=== PATIENT | female | born 1945 | race Caucasian/White ===

== ENCOUNTER 2020-07-08 11:15 | Inpatient (IN) | payer MEDICARE, SELFPAY ==
[~2020-07-08] VITALS: Ht 167.6 cm; Wt 68.9 kg
[2020-07-08 12:05] LABS: Basophils # (auto) 0 10 ^3/uL (0-0.2); Basophils % (auto) 0.1 % (0.0-2.0); Eosinophils # (auto) 0 10 ^3/uL (0-0.8); Hematocrit 39.1 % (36.0-46.0); Hemoglobin 13.3 g/dL (12.2-16.2); Lymphocytes # (auto) 0.7 10 ^3/uL (0.4-5.4); Lymphocytes % (auto) 7.1 % (10.0-50.0); Mean Corpuscular Hemoglobin 29.1 pg (28.0-32.0); Mean Corpuscular Hgb Conc. 34.1 g/dL (32.0-36.0); Mean Corpuscular Volume 85.3 fL (80.0-100.0); Monocytes # (auto) 0.9 10 ^3/uL (0-1.3); Monocytes % (auto) 8.8 % (0.0-12.0); Neutrophils # (auto) 8.7 10 ^3/uL (1.6-8.6); Red Blood Cells 4.58 10^6/uL (4.0-5.20); White Blood Cell 10.4 10^3/uL (4.4-10.8)
[2020-07-08 12:18] LABS: Calcium 8.1 mg/dL (8.5-10.1); Chloride 106 mmol/L (98-107); Potassium 4.2 mmol/L (3.5-5.1); Sodium 139 mmol/L (136-145)
[2020-07-08 12:19] LABS: Lactic Acid w/Reflex 2.3 mmol/L (0.4-2.0)
[2020-07-08 12:27] LABS: Alanine Aminotransferase 19 U/L (13-56); Albumin 2.5 g/dL (3.4-5.0); Alkaline Phosphatase 79 U/L (45-117); Anion Gap 6 (5-15); Aspartate Aminotransferase 39 U/L (15-37); BUN/Creatinine Ratio 21.3; Bilirubin, Total 0.5 mg/dL (0.2-1.0); Blood Urea Nitrogen 20 mg/dL (7-18); Carbon Dioxide 27 mmol/L (21-32); GFR African American 74 mL/min; GFR Non-African American 62 mL/min; Glucose 119 mg/dL (74-106); Lactate Dehydrogenase 452 U/L (84-246); Magnesium 2.6 mg/dL (1.6-2.6); Total Protein 7.9 g/dL (6.4-8.2)
[2020-07-08 12:32] LABS: INR 1.02 (0.9-1.15)
[2020-07-08 12:48] LABS: CRP High Sensitivity > 19.0 mg/dL (< 0.3)
[2020-07-08] MEDS ORDERED: ENOXAPARIN SOD 80 MG/0.8ML SYRINGE SC ONE (13:15)
[2020-07-08] MEDS ORDERED: ASPirin 325 MG TAB PO ONE (13:15)
[2020-07-08] MEDS ORDERED: REMDESIVIR PER PHARMACY 0 ML IV SCH (14:15)
[2020-07-08] MEDS ORDERED: NITROGLYCERIN 0.4 MG SL TAB SL PRN (14:15)
[2020-07-08] MEDS ORDERED: DexAMETHasone SOD PHOS 10MG/1ML VIAL INJ IV SCH (14:54)
[2020-07-08] MEDS ORDERED: IVERMECTIN 3 MG TAB PO ONE (14:55)
[2020-07-08] MEDS ORDERED: REMDESIVIR 200 MG in NS 210ml LOADING DOSE ADULT IV ONE (15:00)
[2020-07-08] MEDS: ASCORBIC ACID 1,000 MG TAB PO SCH (15:46)
[2020-07-08] MEDS: ZINC SULFATE 220mg CAP or TAB PO SCH (15:47)
[2020-07-08] MEDS: CHOLECALCIFEROL (VITD3) 2,000 UNIT CAP/TAB PO SCH (15:47)
[2020-07-08 17:27] VITALS: BP 139/87
[2020-07-08] MEDS ORDERED: diphenhdrAMINE HCL 50 MG/1 ML VL IV ONE (17:30)
[2020-07-08] MEDS ORDERED: ACETAMINOPHEN 650 mg PER 20.3 mL UD PO ONE (17:30)
[2020-07-08] MEDS ORDERED: TOCILIZUMAB 400 MG in SODIUM CHL 0.9% 80 ML IV ONE (18:00)
[2020-07-08] MEDS: ENOXAPARIN SOD 40 MG/0.4 ML SYRINGE SC SCH (21:23)
[2020-07-08] MEDS: BUDESONIDE (INHALATION) 180 MCG IH IN SCH (23:50)
[2020-07-09 00:26] VITALS: BP 98/58
[2020-07-09 01:10] VITALS: BP 98/56
[2020-07-09 01:25] VITALS: BP 103/63
[2020-07-09 02:30] VITALS: BP 92/56
[2020-07-09] MEDS: BUDESONIDE (INHALATION) 180 MCG IH IN SCH ×2 (06:50→21:46)
[2020-07-09 08:00] VITALS: BP 109/58
[2020-07-09] MEDS ORDERED: ACETAMINOPHEN 650 mg PER 20.3 mL UD PO ONE (08:00)
[2020-07-09] MEDS ORDERED: diphenhdrAMINE HCL 50 MG/1 ML VL IV ONE (08:00)
[2020-07-09] MEDS ORDERED: DexAMETHasone SOD PHOS 10MG/1ML VIAL INJ IV ONE (08:00)
[2020-07-09] MEDS ORDERED: TOCILIZUMAB 400 MG in SODIUM CHL 0.9% 80 ML IV ONE (08:30)
[2020-07-09] MEDS: ALBUTEROL SULF HFA 90MCG INH 200DOSE IN PRN (09:15)
[2020-07-09] MEDS: CHOLECALCIFEROL (VITD3) 2,000 UNIT CAP/TAB PO SCH (09:57)
[2020-07-09] MEDS: ZINC SULFATE 220mg CAP or TAB PO SCH (09:57)
[2020-07-09] MEDS: ASCORBIC ACID 1,000 MG TAB PO SCH (09:57)
[2020-07-09] MEDS: ENOXAPARIN SOD 40 MG/0.4 ML SYRINGE SC SCH ×2 (09:58→21:52)
[2020-07-09] MEDS ORDERED: traMADol HCL 50 MG TAB PO PRN (12:15)
[2020-07-09] MEDS ORDERED: ONDANSETRON HCL 4 MG/2 ML VIAL IV PRN (12:15)
[2020-07-09] MEDS: REMDESIVIR 100mg 100 MG in SODIUM CHL 0.9% 230 ML IV SCH (15:00)
[2020-07-09 16:00] VITALS: BP 135/75
[2020-07-09] MEDS ORDERED: ASPirin 81 mg TAB PO ONE (16:00)
[2020-07-09] MEDS ORDERED: ATORVASTATIN 20 MG TAB PO SCH (22:00)
[2020-07-10] VITALS (23 sets, daily range): BP systolic 75–200; BP diastolic 41–124
[2020-07-10] MEDS: MORPHINE SULFATE INJECTION 2 MG/ML SYRG IV PRN (03:50)
[2020-07-10] MEDS ORDERED: LORazepam 2MG/ML-1ML VIAL IV ONE (04:30)
[2020-07-10] MEDS: ALBUTEROL SULF HFA 90MCG INH 200DOSE IN PRN (06:17)
[2020-07-10] MEDS: BUDESONIDE (INHALATION) 180 MCG IH IN SCH ×2 (06:17→22:00)
[2020-07-10 06:19] LABS: Albumin 2.3 g/dL (3.4-5.0); BUN/Creatinine Ratio 40.9; Bilirubin, Total 0.3 mg/dL (0.2-1.0); Calcium 8.2 mg/dL (8.5-10.1); Total Protein 7.2 g/dL (6.4-8.2)
[2020-07-10] MEDS: NOREPINEPHRINE 8 MG/250ML KIT 250 ML IV SCH (08:00)
[2020-07-10] MEDS ORDERED: HALOPERIDOL LACTATE 5 MG/ML INJ VIAL IM PRN (09:30)
[2020-07-10] MEDS: DexAMETHasone SOD PHOS 10MG/1ML VIAL INJ IV SCH (09:37)
[2020-07-10] MEDS: ENOXAPARIN SOD 40 MG/0.4 ML SYRINGE SC SCH ×2 (09:38→22:00)
[2020-07-10] MEDS: ASPirin 81 mg TAB PO SCH (09:39)
[2020-07-10] MEDS: ASCORBIC ACID 1,000 MG TAB PO SCH (09:39)
[2020-07-10] MEDS: CHOLECALCIFEROL (VITD3) 2,000 UNIT CAP/TAB PO SCH (09:39)
[2020-07-10] MEDS: ZINC SULFATE 220mg CAP or TAB PO SCH (09:39)
[2020-07-10] MEDS ORDERED: LORazepam 2MG/ML-1ML VIAL IV PRN (12:00)
[2020-07-10] MEDS: DOXYCYCLINE 100MG/250ML 250 ML IV SCH (12:30)
[2020-07-10] MEDS ORDERED: ETOMIDATE (2MG/ML) 20ML VIAL IV ONE ×2 (12:45→13:12)
[2020-07-10] MEDS ORDERED: ROCURONIUM 10MG/ML 10ML VIAL IV ONE ×2 (12:45→13:12)
[2020-07-10] MEDS: fentaNYL Drip 2500mCg/250mlNS 250 ML IV SCH (13:30)
[2020-07-10] MEDS: MIDAZOLAM DRIP 50 mg/50mL 50 ML IV SCH (13:30)
[2020-07-10] MEDS: PROPOFOL 100 ML IV SCH (13:30)
[2020-07-10] MEDS: REMDESIVIR 100mg 100 MG in SODIUM CHL 0.9% 230 ML IV SCH (15:00)
[2020-07-11] VITALS (31 sets, daily range): BP systolic 90–142; BP diastolic 39–69
[2020-07-11] MEDS: DOXYCYCLINE 100MG/250ML 250 ML IV SCH ×2 (00:30→11:38)
[2020-07-11 05:12] LABS: Basophils # (auto) 0 10 ^3/uL (0-0.2); Basophils % (auto) 0.2 % (0.0-2.0); Eosinophils # (auto) 0 10 ^3/uL (0-0.8); Eosinophils % (auto) 0.1 % (0.0-7.0); Hematocrit 35.9 % (36.0-46.0); Hemoglobin 11.8 g/dL (12.2-16.2); Lymphocytes # (auto) 0.7 10 ^3/uL (0.4-5.4); Lymphocytes % (auto) 9.8 % (10.0-50.0); Mean Corpuscular Hemoglobin 28.4 pg (28.0-32.0); Monocytes # (auto) 0.7 10 ^3/uL (0-1.3); Monocytes % (auto) 10.6 % (0.0-12.0); Neutrophils # (auto) 5.3 10 ^3/uL (1.6-8.6); Neutrophils % (auto) 79.3 % (37.0-80.0); Nucleated Red Blood Cells % 0.5 %; Red Blood Cells 4.17 10^6/uL (4.0-5.20); Red Cell Distribution Width 15.6 % (11.8-14.3); White Blood Cell 6.7 10^3/uL (4.4-10.8)
[2020-07-11 05:15] LABS: Calcium 7.8 mg/dL (8.5-10.1); Potassium 4.4 mmol/L (3.5-5.1)
[2020-07-11 05:23] LABS: Albumin 2.3 g/dL (3.4-5.0); BUN/Creatinine Ratio 39.8; Bilirubin, Total 0.4 mg/dL (0.2-1.0); Total Protein 6.5 g/dL (6.4-8.2)
[2020-07-11] MEDS: DexAMETHasone SOD PHOS 10MG/1ML VIAL INJ IV SCH (08:58)
[2020-07-11] MEDS: ZINC SULFATE 220mg CAP or TAB PO SCH (08:59)
[2020-07-11] MEDS: ASCORBIC ACID 1,000 MG TAB PO SCH (08:59)
[2020-07-11] MEDS: CHOLECALCIFEROL (VITD3) 2,000 UNIT CAP/TAB PO SCH (08:59)
[2020-07-11] MEDS: ASPirin 81 mg TAB PO SCH ×2 (08:59)
[2020-07-11] MEDS: ENOXAPARIN SOD 40 MG/0.4 ML SYRINGE SC SCH ×2 (10:00→21:35)
[2020-07-11] MEDS: MIDAZOLAM DRIP 50 mg/50mL 50 ML IV SCH (12:00)
[2020-07-11] MEDS: fentaNYL Drip 2500mCg/250mlNS 250 ML IV SCH (12:15)
[2020-07-11] MEDS ORDERED: Jevity 1.2 Cal/Fiber 1 Liter GT SCH (14:30)
[2020-07-11] MEDS ORDERED: D5W 5% 1,000 ML IV SCH (14:30)
[2020-07-11] MEDS: REMDESIVIR 100mg 100 MG in SODIUM CHL 0.9% 230 ML IV SCH (15:25)
[2020-07-11 15:59] LABS: Urine Bacteria NONE SEEN /hpf (None Seen); Urine Blood Negative /uL (Negative); Urine Hyaline Cast FEW /lpf (0 - 2); Urine Mucus FEW (None Seen); Urine Specific Gravity 1.023 (1.001-1.035); Urine WBC 9 /hpf (0 - 5)
[2020-07-12] VITALS (31 sets, daily range): BP systolic 69–143; BP diastolic 49–77
[2020-07-12] MEDS: DOXYCYCLINE 100MG/250ML 250 ML IV SCH ×2 (00:30→12:07)
[2020-07-12 07:21] LABS: Hematocrit 34.1 % (36.0-46.0); Hemoglobin 11.4 g/dL (12.2-16.2); Mean Corpuscular Hemoglobin 28.9 pg (28.0-32.0); Mean Corpuscular Hgb Conc. 33.5 g/dL (32.0-36.0); Mean Corpuscular Volume 86.1 fL (80.0-100.0); Red Blood Cells 3.96 10^6/uL (4.0-5.20); Red Cell Distribution Width 15.6 % (11.8-14.3); White Blood Cell 6.5 10^3/uL (4.4-10.8)
[2020-07-12 07:39] LABS: Albumin 2.2 g/dL (3.4-5.0); Calcium 7.3 mg/dL (8.5-10.1); Potassium 3.4 mmol/L (3.5-5.1)
[2020-07-12 07:43] LABS: BUN/Creatinine Ratio 29.8; Bilirubin, Total 0.4 mg/dL (0.2-1.0)
[2020-07-12 07:57] LABS: Basophils % (manual) 0 (0.0-2.0); Blast Cells 0; Eosinophils % (manual) 0 (0-7); Myelocytes % 0; Promyelocytes % 0; Reactive Lymphocytes 0
[2020-07-12 09:10] LABS: Band Neutrophils % (manual) 3; Lymphocytes % (manual) 11 (10.0-50.0); Metamyelocytes % 1; Monocytes % (manual) 2 (0-12)
[2020-07-12] MEDS: ENOXAPARIN SOD 40 MG/0.4 ML SYRINGE SC SCH ×2 (09:14→22:00)
[2020-07-12] MEDS: ASPirin 81 mg TAB PO SCH (09:14)
[2020-07-12] MEDS: CHOLECALCIFEROL (VITD3) 2,000 UNIT CAP/TAB PO SCH (09:14)
[2020-07-12] MEDS: DexAMETHasone SOD PHOS 10MG/1ML VIAL INJ IV SCH (09:14)
[2020-07-12] MEDS: ASCORBIC ACID 1,000 MG TAB PO SCH (09:14)
[2020-07-12] MEDS: ZINC SULFATE 220mg CAP or TAB PO SCH (09:14)
[2020-07-12] MEDS ORDERED: Jevity 1.2 Cal/Fiber 1 Liter GT SCH (13:30)
[2020-07-12] MEDS ORDERED: POTASSIUM EFFERVESENT TAB 25 MEQ GT ONE (13:30)
[2020-07-12] MEDS ORDERED: ERGOCALCIFEROL 50,000 UNIT(1.25MG) CAP PO SCH (13:30)
[2020-07-12] MEDS: D5W 5% 1,000 ML IV SCH (13:53)
[2020-07-12] MEDS: REMDESIVIR 100mg 100 MG in SODIUM CHL 0.9% 230 ML IV SCH (15:00)
[2020-07-13] VITALS (26 sets, daily range): BP systolic 90–130; BP diastolic 48–75
[2020-07-13] MEDS: DOXYCYCLINE 100MG/250ML 250 ML IV SCH ×2 (00:30→12:53)
[2020-07-13 07:18] LABS: Hematocrit 34.8 % (36.0-46.0); Hemoglobin 11.7 g/dL (12.2-16.2); Mean Corpuscular Hemoglobin 28.9 pg (28.0-32.0); Mean Corpuscular Hgb Conc. 33.7 g/dL (32.0-36.0); Mean Corpuscular Volume 85.8 fL (80.0-100.0); Red Blood Cells 4.05 10^6/uL (4.0-5.20); Red Cell Distribution Width 14.8 % (11.8-14.3); White Blood Cell 11.6 10^3/uL (4.4-10.8)
[2020-07-13 07:28] LABS: Basophils % (manual) 0 (0.0-2.0); Blast Cells 0; Myelocytes % 0; Promyelocytes % 0; Reactive Lymphocytes 0
[2020-07-13 07:40] LABS: BUN/Creatinine Ratio 26.5; Calcium 7.5 mg/dL (8.5-10.1); Potassium 3.5 mmol/L (3.5-5.1)
[2020-07-13 08:31] LABS: Band Neutrophils % (manual) 1; Eosinophils % (manual) 2 (0-7); Lymphocytes % (manual) 5 (10.0-50.0); Metamyelocytes % 3; Monocytes % (manual) 8 (0-12)
[2020-07-13] MEDS: ASCORBIC ACID 1,000 MG TAB PO SCH (09:10)
[2020-07-13] MEDS: ZINC SULFATE 220mg CAP or TAB PO SCH (09:11)
[2020-07-13] MEDS: CHOLECALCIFEROL (VITD3) 2,000 UNIT CAP/TAB PO SCH (09:11)
[2020-07-13] MEDS: ENOXAPARIN SOD 40 MG/0.4 ML SYRINGE SC SCH ×2 (09:11→22:00)
[2020-07-13] MEDS: DexAMETHasone SOD PHOS 10MG/1ML VIAL INJ IV SCH (09:11)
[2020-07-13] MEDS: ASPirin 81 mg TAB PO SCH (09:11)
[2020-07-13] MEDS: D5W 5% 1,000 ML IV SCH (09:12)
[2020-07-13] MEDS: fentaNYL Drip 2500mCg/250mlNS 250 ML IV SCH (12:15)
[2020-07-13] MEDS: MIDAZOLAM DRIP 50 mg/50mL 50 ML IV SCH ×2 (12:15→17:00)
[2020-07-13] MEDS ORDERED: LACTULOSE 20Gm/30ML SOLN PO ONE (13:00)
[2020-07-13] MEDS: LACTULOSE 20Gm/30ML SOLN PO SCH (17:46)
[2020-07-14] VITALS (30 sets, daily range): BP systolic 85–146; BP diastolic 37–75
[2020-07-14] MEDS: DOXYCYCLINE 100MG/250ML 250 ML IV SCH ×3 (00:30→23:58)
[2020-07-14] MEDS: LACTULOSE 20Gm/30ML SOLN PO SCH ×5 (06:00→23:58)
[2020-07-14 07:31] LABS: Hematocrit 34.8 % (36.0-46.0); Hemoglobin 11.9 g/dL (12.2-16.2); Mean Corpuscular Hemoglobin 29.4 pg (28.0-32.0); Mean Corpuscular Hgb Conc. 34.3 g/dL (32.0-36.0); Mean Corpuscular Volume 85.8 fL (80.0-100.0); Red Blood Cells 4.05 10^6/uL (4.0-5.20); Red Cell Distribution Width 14.6 % (11.8-14.3); White Blood Cell 10.5 10^3/uL (4.4-10.8)
[2020-07-14 07:41] LABS: Basophils % (manual) 0 (0.0-2.0); Blast Cells 0; Eosinophils % (manual) 0 (0-7); Myelocytes % 0; Promyelocytes % 0; Reactive Lymphocytes 0
[2020-07-14 07:53] LABS: Potassium 4.5 mmol/L (3.5-5.1)
[2020-07-14 08:01] LABS: BUN/Creatinine Ratio 22.7; Calcium 7.6 mg/dL (8.5-10.1)
[2020-07-14 08:18] LABS: Band Neutrophils % (manual) 1; Lymphocytes % (manual) 7 (10.0-50.0); Metamyelocytes % 1; Monocytes % (manual) 10 (0-12)
[2020-07-14] MEDS: MIDAZOLAM DRIP 50 mg/50mL 50 ML IV SCH ×3 (10:12→19:39)
[2020-07-14] MEDS: ZINC SULFATE 220mg CAP or TAB PO SCH (10:13)
[2020-07-14] MEDS: DexAMETHasone SOD PHOS 10MG/1ML VIAL INJ IV SCH (10:13)
[2020-07-14] MEDS: ENOXAPARIN SOD 40 MG/0.4 ML SYRINGE SC SCH ×2 (10:13→21:22)
[2020-07-14] MEDS: CHOLECALCIFEROL (VITD3) 2,000 UNIT CAP/TAB PO SCH (10:13)
[2020-07-14] MEDS: ASPirin 81 mg TAB PO SCH (10:13)
[2020-07-14] MEDS: ASCORBIC ACID 1,000 MG TAB PO SCH (10:13)
[2020-07-14] MEDS ORDERED: METOCLOPRAMIDE HCL 5MG/ml INJ 2ml VIAL IV ONE (13:15)
[2020-07-14] MEDS ORDERED: FLEET ENEMA(ADULT) 135 ML PR ONE (15:27)
[2020-07-14] MEDS: METOCLOPRAMIDE HCL 5MG/ml INJ 2ml VIAL IV SCH (21:22)
[2020-07-14] MEDS: fentaNYL Drip 2500mCg/250mlNS 250 ML IV SCH (21:54)
[2020-07-15] VITALS (75 sets, daily range): BP systolic 80–137; BP diastolic 46–77
[2020-07-15] MEDS: NOREPINEPHRINE 8 MG/250ML KIT 250 ML IV SCH ×2 (01:30→19:30)
[2020-07-15] MEDS: MIDAZOLAM DRIP 50 mg/50mL 50 ML IV SCH ×2 (01:53→12:37)
[2020-07-15 05:50] LABS: Hematocrit 37.7 % (36.0-46.0); Hemoglobin 12.4 g/dL (12.2-16.2); Mean Corpuscular Hemoglobin 28.4 pg (28.0-32.0); Mean Corpuscular Hgb Conc. 32.9 g/dL (32.0-36.0); Mean Corpuscular Volume 86.5 fL (80.0-100.0); Red Blood Cells 4.36 10^6/uL (4.0-5.20); Red Cell Distribution Width 15.3 % (11.8-14.3); White Blood Cell 12.3 10^3/uL (4.4-10.8)
[2020-07-15 05:54] LABS: Basophils % (manual) 0 (0.0-2.0); Blast Cells 0; Eosinophils % (manual) 0 (0-7); Myelocytes % 0; Promyelocytes % 0; Reactive Lymphocytes 0
[2020-07-15 06:05] LABS: Calcium 7.4 mg/dL (8.5-10.1); Potassium 3.4 mmol/L (3.5-5.1)
[2020-07-15 06:09] LABS: BUN/Creatinine Ratio 30.3
[2020-07-15] MEDS: LACTULOSE 20Gm/30ML SOLN PO SCH ×3 (06:22→17:32)
[2020-07-15] MEDS: METOCLOPRAMIDE HCL 5MG/ml INJ 2ml VIAL IV SCH ×3 (06:22→22:00)
[2020-07-15 06:54] LABS: Band Neutrophils % (manual) 17; Lymphocytes % (manual) 2 (10.0-50.0); Metamyelocytes % 1; Monocytes % (manual) 8 (0-12)
[2020-07-15] MEDS: DexAMETHasone SOD PHOS 10MG/1ML VIAL INJ IV SCH (10:36)
[2020-07-15] MEDS: ENOXAPARIN SOD 40 MG/0.4 ML SYRINGE SC SCH ×2 (10:37→22:00)
[2020-07-15] MEDS: ZINC SULFATE 220mg CAP or TAB PO SCH (10:38)
[2020-07-15] MEDS: CHOLECALCIFEROL (VITD3) 2,000 UNIT CAP/TAB PO SCH (10:38)
[2020-07-15] MEDS: ASPirin 81 mg TAB PO SCH (10:38)
[2020-07-15] MEDS: ASCORBIC ACID 1,000 MG TAB PO SCH (10:38)
[2020-07-15] MEDS: PROPOFOL 100 ML IV SCH (10:41)
[2020-07-15] MEDS: fentaNYL Drip 2500mCg/250mlNS 250 ML IV SCH (12:38)
[2020-07-15] MEDS: DOXYCYCLINE 100MG/250ML 250 ML IV SCH (12:40)
[2020-07-15] MEDS ORDERED: ERGOCALCIFEROL 50,000 UNIT(1.25MG) CAP PO SCH (16:00)
[2020-07-15] MEDS ORDERED: POTASSIUM CHLORIDE 20 MEQ, LIDOCAINE 1% (LOCAL ANESTH.) 2 ML in SODIUM CHL 0.9% 100 ML IV ONE (16:00)
[2020-07-16] VITALS (97 sets, daily range): BP systolic 92–149; BP diastolic 49–72
[2020-07-16] MEDS: DOXYCYCLINE 100MG/250ML 250 ML IV SCH ×3 (00:55→21:08)
[2020-07-16] MEDS: fentaNYL Drip 2500mCg/250mlNS 250 ML IV SCH ×2 (02:00→11:39)
[2020-07-16 06:01] LABS: Albumin 2.4 g/dL (3.4-5.0); Calcium 7.9 mg/dL (8.5-10.1); Hematocrit 38.9 % (36.0-46.0); Mean Corpuscular Hemoglobin 28.8 pg (28.0-32.0); Mean Corpuscular Hgb Conc. 33.4 g/dL (32.0-36.0); Mean Corpuscular Volume 86.2 fL (80.0-100.0); Potassium 3.8 mmol/L (3.5-5.1); Red Blood Cells 4.51 10^6/uL (4.0-5.20); Red Cell Distribution Width 15.4 % (11.8-14.3)
[2020-07-16 06:04] LABS: Bilirubin, Total 0.5 mg/dL (0.2-1.0); Total Protein 5.7 g/dL (6.4-8.2)
[2020-07-16] MEDS: LACTULOSE 20Gm/30ML SOLN PO SCH ×2 (06:19)
[2020-07-16] MEDS: METOCLOPRAMIDE HCL 5MG/ml INJ 2ml VIAL IV SCH ×3 (06:19→21:07)
[2020-07-16 06:24] LABS: Basophils % (manual) 0 (0.0-2.0); Blast Cells 0; Eosinophils % (manual) 0 (0-7); Metamyelocytes % 0; Promyelocytes % 0; Reactive Lymphocytes 0
[2020-07-16] MEDS: MIDAZOLAM DRIP 50 mg/50mL 50 ML IV SCH ×3 (06:29→23:50)
[2020-07-16] MEDS: ASCORBIC ACID 1,000 MG TAB PO SCH (09:33)
[2020-07-16] MEDS: ZINC SULFATE 220mg CAP or TAB PO SCH (09:33)
[2020-07-16] MEDS: CHOLECALCIFEROL (VITD3) 2,000 UNIT CAP/TAB PO SCH (09:33)
[2020-07-16] MEDS: ASPirin 81 mg TAB PO SCH (09:33)
[2020-07-16] MEDS: DexAMETHasone SOD PHOS 10MG/1ML VIAL INJ IV SCH (09:33)
[2020-07-16] MEDS: ENOXAPARIN SOD 40 MG/0.4 ML SYRINGE SC SCH ×2 (09:34→21:08)
[2020-07-16] MEDS: PROPOFOL 100 ML IV SCH (11:45)
[2020-07-16 12:55] LABS: Monocytes % (manual) 5 (0-12)
[2020-07-16 12:56] LABS: Myelocytes % 2
[2020-07-16 12:57] LABS: Band Neutrophils % (manual) 3; Lymphocytes % (manual) 3 (10.0-50.0)
[2020-07-16] MEDS: NOREPINEPHRINE 8 MG/250ML KIT 250 ML IV SCH (19:30)
[2020-07-17] VITALS (77 sets, daily range): BP systolic 88–156; BP diastolic 45–79
[2020-07-17] MEDS: fentaNYL Drip 2500mCg/250mlNS 250 ML IV SCH (01:05)
[2020-07-17] MEDS: METOCLOPRAMIDE HCL 5MG/ml INJ 2ml VIAL IV SCH ×3 (06:00→21:15)
[2020-07-17] MEDS: DexAMETHasone SOD PHOS 10MG/1ML VIAL INJ IV SCH (08:34)
[2020-07-17] MEDS: ASPirin 81 mg TAB PO SCH (08:34)
[2020-07-17] MEDS: ZINC SULFATE 220mg CAP or TAB PO SCH (08:36)
[2020-07-17] MEDS: ASCORBIC ACID 1,000 MG TAB PO SCH (08:37)
[2020-07-17] MEDS: CHOLECALCIFEROL (VITD3) 2,000 UNIT CAP/TAB PO SCH (08:38)
[2020-07-17] MEDS: ENOXAPARIN SOD 40 MG/0.4 ML SYRINGE SC SCH ×2 (08:39→21:15)
[2020-07-17 10:53] LABS: Basophils # (auto) 0 10 ^3/uL (0-0.2); Basophils % (auto) 0.2 % (0.0-2.0); Eosinophils # (auto) 0 10 ^3/uL (0-0.8); Eosinophils % (auto) 0.2 % (0.0-7.0); Hematocrit 34.3 % (36.0-46.0); Hemoglobin 11.5 g/dL (12.2-16.2); Lymphocytes # (auto) 1.3 10 ^3/uL (0.4-5.4); Lymphocytes % (auto) 7.5 % (10.0-50.0); Mean Corpuscular Hemoglobin 28.7 pg (28.0-32.0); Mean Corpuscular Hgb Conc. 33.7 g/dL (32.0-36.0); Mean Corpuscular Volume 85.2 fL (80.0-100.0); Monocytes # (auto) 1.9 10 ^3/uL (0-1.3); Monocytes % (auto) 11.6 % (0.0-12.0); Neutrophils # (auto) 13.5 10 ^3/uL (1.6-8.6); Neutrophils % (auto) 80.5 % (37.0-80.0); Nucleated Red Blood Cells % 0.1 %; Red Blood Cells 4.02 10^6/uL (4.0-5.20); Red Cell Distribution Width 15.1 % (11.8-14.3); White Blood Cell 16.7 10^3/uL (4.4-10.8)
[2020-07-17 11:04] LABS: Potassium 3.7 mmol/L (3.5-5.1)
[2020-07-17 11:11] LABS: Albumin 2.1 g/dL (3.4-5.0); BUN/Creatinine Ratio 37.7; Bilirubin, Total 0.5 mg/dL (0.2-1.0); Calcium 7.2 mg/dL (8.5-10.1)
[2020-07-17] MEDS: PROPOFOL 100 ML IV SCH (12:15)
[2020-07-17] MEDS: DOXYCYCLINE 100MG/250ML 250 ML IV SCH (13:27)
[2020-07-17] MEDS: NOREPINEPHRINE 8 MG/250ML KIT 250 ML IV SCH (15:40)
[2020-07-17] MEDS: MIDAZOLAM DRIP 50 mg/50mL 50 ML IV SCH (20:47)
[2020-07-18] VITALS (89 sets, daily range): BP systolic 78–156; BP diastolic 44–83
[2020-07-18] MEDS: DOXYCYCLINE 100MG/250ML 250 ML IV SCH ×2 (00:20→12:53)
[2020-07-18 04:59] LABS: Basophils # (auto) 0 10 ^3/uL (0-0.2); Basophils % (auto) 0.2 % (0.0-2.0); Eosinophils # (auto) 0 10 ^3/uL (0-0.8); Hematocrit 32.7 % (36.0-46.0); Hemoglobin 11.1 g/dL (12.2-16.2); Lymphocytes # (auto) 1.2 10 ^3/uL (0.4-5.4); Lymphocytes % (auto) 7.6 % (10.0-50.0); Mean Corpuscular Hemoglobin 28.9 pg (28.0-32.0); Mean Corpuscular Hgb Conc. 33.9 g/dL (32.0-36.0); Mean Corpuscular Volume 85.2 fL (80.0-100.0); Monocytes # (auto) 1.5 10 ^3/uL (0-1.3); Monocytes % (auto) 9.9 % (0.0-12.0); Neutrophils # (auto) 12.8 10 ^3/uL (1.6-8.6); Neutrophils % (auto) 82.3 % (37.0-80.0); Red Blood Cells 3.84 10^6/uL (4.0-5.20); Red Cell Distribution Width 14.8 % (11.8-14.3); White Blood Cell 15.5 10^3/uL (4.4-10.8)
[2020-07-18 05:05] LABS: BUN/Creatinine Ratio 48.9; Calcium 7.6 mg/dL (8.5-10.1); Potassium 4.3 mmol/L (3.5-5.1)
[2020-07-18] MEDS: METOCLOPRAMIDE HCL 5MG/ml INJ 2ml VIAL IV SCH ×3 (06:14→21:22)
[2020-07-18] MEDS: ASPirin 81 mg TAB PO SCH (09:53)
[2020-07-18] MEDS: DexAMETHasone SOD PHOS 10MG/1ML VIAL INJ IV SCH (09:53)
[2020-07-18] MEDS: ENOXAPARIN SOD 40 MG/0.4 ML SYRINGE SC SCH ×2 (09:54→21:22)
[2020-07-18] MEDS: ASCORBIC ACID 1,000 MG TAB PO SCH (09:54)
[2020-07-18] MEDS: CHOLECALCIFEROL (VITD3) 2,000 UNIT CAP/TAB PO SCH (09:54)
[2020-07-18] MEDS: ZINC SULFATE 220mg CAP or TAB PO SCH (09:54)
[2020-07-18] MEDS: PROPOFOL 100 ML IV SCH (12:15)
[2020-07-18] MEDS ORDERED: QUEtiapine FUMARATE 25 MG TAB PO ONE (13:00)
[2020-07-18] MEDS ORDERED: FUROSEMIDE 20 MG/2 ML VIAL IV ONE (13:00)
[2020-07-18 13:48] LABS: INR 1.08 (0.9-1.15); Partial Thromboplastin Time 26.9 sec (23.0-31.2)
[2020-07-18] MEDS: fentaNYL Drip 2500mCg/250mlNS 250 ML IV SCH ×2 (13:53→22:00)
[2020-07-18] MEDS: levoFLOXacin 500MG 100 ML IV SCH (14:15)
[2020-07-18] MEDS: QUEtiapine FUMARATE 25 MG TAB PO SCH (21:22)
[2020-07-18] MEDS: SODIUM CHLOR 0.9% PF (SALINE LOCK) 10ML VIAL/SYR IV SCH (21:22)
[2020-07-18] MEDS: MIDAZOLAM DRIP 50 mg/50mL 50 ML IV SCH (22:00)
[2020-07-19] VITALS (81 sets, daily range): BP systolic 98–162; BP diastolic 46–98
[2020-07-19 05:37] LABS: Basophils # (auto) 0 10 ^3/uL (0-0.2); Basophils % (auto) 0.1 % (0.0-2.0); Eosinophils # (auto) 0 10 ^3/uL (0-0.8); Eosinophils % (auto) 0.1 % (0.0-7.0); Hematocrit 34.8 % (36.0-46.0); Hemoglobin 11.7 g/dL (12.2-16.2); Lymphocytes # (auto) 1.3 10 ^3/uL (0.4-5.4); Lymphocytes % (auto) 9.6 % (10.0-50.0); Mean Corpuscular Hemoglobin 29.5 pg (28.0-32.0); Mean Corpuscular Hgb Conc. 33.8 g/dL (32.0-36.0); Mean Corpuscular Volume 87.2 fL (80.0-100.0); Monocytes # (auto) 1.7 10 ^3/uL (0-1.3); Monocytes % (auto) 12.6 % (0.0-12.0); Neutrophils # (auto) 10.4 10 ^3/uL (1.6-8.6); Neutrophils % (auto) 77.6 % (37.0-80.0); Red Blood Cells 3.99 10^6/uL (4.0-5.20); White Blood Cell 13.4 10^3/uL (4.4-10.8)
[2020-07-19] MEDS: METOCLOPRAMIDE HCL 5MG/ml INJ 2ml VIAL IV SCH (06:00)
[2020-07-19 06:34] LABS: Calcium 7.9 mg/dL (8.5-10.1); Potassium 4.2 mmol/L (3.5-5.1)
[2020-07-19 06:37] LABS: BUN/Creatinine Ratio 44.2
[2020-07-19] MEDS: levoFLOXacin 500MG 100 ML IV SCH (09:08)
[2020-07-19] MEDS: SODIUM CHLOR 0.9% PF (SALINE LOCK) 10ML VIAL/SYR IV SCH ×2 (09:08→21:19)
[2020-07-19] MEDS: DexAMETHasone SOD PHOS 10MG/1ML VIAL INJ IV SCH (09:08)
[2020-07-19] MEDS: ASCORBIC ACID 1,000 MG TAB PO SCH (09:09)
[2020-07-19] MEDS: QUEtiapine FUMARATE 25 MG TAB PO SCH ×2 (09:09→21:19)
[2020-07-19] MEDS: ASPirin 81 mg TAB PO SCH (09:09)
[2020-07-19] MEDS: ZINC SULFATE 220mg CAP or TAB PO SCH (09:09)
[2020-07-19] MEDS: CHOLECALCIFEROL (VITD3) 2,000 UNIT CAP/TAB PO SCH (09:09)
[2020-07-19] MEDS: ENOXAPARIN SOD 40 MG/0.4 ML SYRINGE SC SCH ×2 (09:10→21:19)
[2020-07-19] MEDS: PROPOFOL 100 ML IV SCH (11:44)
[2020-07-19] MEDS: MORPHINE SULFATE INJECTION 2 MG/ML SYRG IV PRN ×2 (19:27→21:19)
[2020-07-19] MEDS ORDERED: METOPROLOL TARTRATE 1MG/1ML-5ML VIAL IV ONE ×2 (19:30→22:30)
[2020-07-20] VITALS (27 sets, daily range): BP systolic 105–151; BP diastolic 65–94
[2020-07-20 04:11] LABS: Basophils # (auto) 0.1 10 ^3/uL (0-0.2); Basophils % (auto) 0.8 % (0.0-2.0); Eosinophils # (auto) 0 10 ^3/uL (0-0.8); Eosinophils % (auto) 0.2 % (0.0-7.0); Hematocrit 31.9 % (36.0-46.0); Hemoglobin 10.9 g/dL (12.2-16.2); Lymphocytes # (auto) 1.3 10 ^3/uL (0.4-5.4); Lymphocytes % (auto) 10.7 % (10.0-50.0); Mean Corpuscular Hgb Conc. 34.1 g/dL (32.0-36.0); Mean Corpuscular Volume 85.1 fL (80.0-100.0); Monocytes # (auto) 1.5 10 ^3/uL (0-1.3); Monocytes % (auto) 13.2 % (0.0-12.0); Neutrophils # (auto) 8.8 10 ^3/uL (1.6-8.6); Neutrophils % (auto) 75.1 % (37.0-80.0); Red Blood Cells 3.74 10^6/uL (4.0-5.20); Red Cell Distribution Width 15.3 % (11.8-14.3); White Blood Cell 11.7 10^3/uL (4.4-10.8)
[2020-07-20 04:22] LABS: Potassium 3.8 mmol/L (3.5-5.1)
[2020-07-20 04:27] LABS: BUN/Creatinine Ratio 42.3; Calcium 7.6 mg/dL (8.5-10.1)
[2020-07-20] MEDS: NOREPINEPHRINE 8 MG/250ML KIT 250 ML IV SCH (07:08)
[2020-07-20] MEDS: DexAMETHasone SOD PHOS 10MG/1ML VIAL INJ IV SCH (08:28)
[2020-07-20] MEDS: SODIUM CHLOR 0.9% PF (SALINE LOCK) 10ML VIAL/SYR IV SCH ×2 (08:28→21:58)
[2020-07-20] MEDS: ENOXAPARIN SOD 40 MG/0.4 ML SYRINGE SC SCH ×2 (08:29→21:58)
[2020-07-20] MEDS: levoFLOXacin 500MG 100 ML IV SCH (08:30)
[2020-07-20] MEDS: QUEtiapine FUMARATE 25 MG TAB PO SCH (09:09)
[2020-07-20] MEDS: ASCORBIC ACID 1,000 MG TAB PO SCH (09:09)
[2020-07-20] MEDS: ASPirin 81 mg TAB PO SCH (09:09)
[2020-07-20] MEDS: ZINC SULFATE 220mg CAP or TAB PO SCH (09:09)
[2020-07-20] MEDS: CHOLECALCIFEROL (VITD3) 2,000 UNIT CAP/TAB PO SCH (09:09)
[2020-07-20] MEDS ORDERED: METOPROLOL TARTRATE 25 MG TAB PO ONE (14:45)
[2020-07-20] MEDS: METOPROLOL TARTRATE 25 MG TAB PO SCH (21:59)
[2020-07-21 00:28] VITALS: BP 100/57
[2020-07-21 06:04] LABS: Basophils # (auto) 0.1 10 ^3/uL (0-0.2); Basophils % (auto) 0.7 % (0.0-2.0); Eosinophils # (auto) 0 10 ^3/uL (0-0.8); Eosinophils % (auto) 0.3 % (0.0-7.0); Hematocrit 31.7 % (36.0-46.0); Hemoglobin 10.6 g/dL (12.2-16.2); Lymphocytes # (auto) 1.1 10 ^3/uL (0.4-5.4); Mean Corpuscular Hemoglobin 29.2 pg (28.0-32.0); Mean Corpuscular Hgb Conc. 33.6 g/dL (32.0-36.0); Mean Corpuscular Volume 86.9 fL (80.0-100.0); Monocytes # (auto) 1.5 10 ^3/uL (0-1.3); Monocytes % (auto) 12.9 % (0.0-12.0); Neutrophils # (auto) 8.6 10 ^3/uL (1.6-8.6); Neutrophils % (auto) 76.1 % (37.0-80.0); Nucleated Red Blood Cells % 0.2 %; Red Blood Cells 3.65 10^6/uL (4.0-5.20); Red Cell Distribution Width 15.8 % (11.8-14.3); White Blood Cell 11.3 10^3/uL (4.4-10.8)
[2020-07-21 06:28] LABS: BUN/Creatinine Ratio 45.8; Calcium 7.8 mg/dL (8.5-10.1)
[2020-07-21 08:00] VITALS: BP 118/68
[2020-07-21] MEDS: levoFLOXacin 500MG 100 ML IV SCH (09:18)
[2020-07-21] MEDS: SODIUM CHLOR 0.9% PF (SALINE LOCK) 10ML VIAL/SYR IV SCH ×2 (09:18→22:56)
[2020-07-21] MEDS: DexAMETHasone SOD PHOS 10MG/1ML VIAL INJ IV SCH (09:19)
[2020-07-21] MEDS: METOPROLOL TARTRATE 25 MG TAB PO SCH (09:20)
[2020-07-21] MEDS: MORPHINE SULFATE INJECTION 2 MG/ML SYRG IV PRN (09:21)
[2020-07-21] MEDS: ENOXAPARIN SOD 40 MG/0.4 ML SYRINGE SC SCH (09:54)
[2020-07-21] MEDS: CHOLECALCIFEROL (VITD3) 2,000 UNIT CAP/TAB PO SCH (09:54)
[2020-07-21] MEDS: ZINC SULFATE 220mg CAP or TAB PO SCH (09:54)
[2020-07-21] MEDS: ASCORBIC ACID 1,000 MG TAB PO SCH (09:54)
[2020-07-21] MEDS: ASPirin 81 mg TAB PO SCH (09:54)
[2020-07-21] MEDS ORDERED: FAMOTIDINE (10MG/ML) 2ML VL IV ONE (12:15)
[2020-07-21] MEDS: SODIUM CHLORIDE 0.9% 1,000 ML IV SCH (14:02)
[2020-07-21 16:00] VITALS: BP 107/68
[2020-07-21] MEDS: FAMOTIDINE (10MG/ML) 2ML VL IV SCH (22:56)
[2020-07-21 23:55] VITALS: BP 120/64
[2020-07-22] MEDS: SODIUM CHLORIDE 0.9% 1,000 ML IV SCH (06:49)
[2020-07-22 08:00] VITALS: BP 120/69
[2020-07-22] MEDS: DexAMETHasone SOD PHOS 4 MG/1ML SDV INJ IV SCH (09:18)
[2020-07-22] MEDS: levoFLOXacin 500MG 100 ML IV SCH (09:19)
[2020-07-22] MEDS: SODIUM CHLOR 0.9% PF (SALINE LOCK) 10ML VIAL/SYR IV SCH ×2 (09:19→21:28)
[2020-07-22] MEDS: FAMOTIDINE (10MG/ML) 2ML VL IV SCH ×2 (09:19→21:28)
[2020-07-22] MEDS: ASCORBIC ACID 1,000 MG TAB PO SCH (09:20)
[2020-07-22] MEDS: ZINC SULFATE 220mg CAP or TAB PO SCH (09:20)
[2020-07-22] MEDS: CHOLECALCIFEROL (VITD3) 2,000 UNIT CAP/TAB PO SCH (09:21)
[2020-07-22 10:13] LABS: Basophils # (auto) 0.1 10 ^3/uL (0-0.2); Basophils % (auto) 0.6 % (0.0-2.0); Eosinophils # (auto) 0 10 ^3/uL (0-0.8); Eosinophils % (auto) 0.4 % (0.0-7.0); Hematocrit 26.1 % (36.0-46.0); Hemoglobin 8.9 g/dL (12.2-16.2); Lymphocytes # (auto) 0.8 10 ^3/uL (0.4-5.4); Lymphocytes % (auto) 8.5 % (10.0-50.0); Mean Corpuscular Hemoglobin 30.4 pg (28.0-32.0); Mean Corpuscular Hgb Conc. 34.3 g/dL (32.0-36.0); Mean Corpuscular Volume 88.6 fL (80.0-100.0); Monocytes # (auto) 1.1 10 ^3/uL (0-1.3); Monocytes % (auto) 12.4 % (0.0-12.0); Neutrophils # (auto) 7.1 10 ^3/uL (1.6-8.6); Neutrophils % (auto) 78.1 % (37.0-80.0); Nucleated Red Blood Cells % 0.1 %; Red Blood Cells 2.94 10^6/uL (4.0-5.20); Red Cell Distribution Width 16.5 % (11.8-14.3); White Blood Cell 9.1 10^3/uL (4.4-10.8)
[2020-07-22 10:35] LABS: BUN/Creatinine Ratio 48.8; Calcium 6.8 mg/dL (8.5-10.1); Potassium 3.5 mmol/L (3.5-5.1)
[2020-07-22] MEDS ORDERED: LACTULOSE 20Gm/30ML SOLN PO ONE (13:15)
[2020-07-22] MEDS: SUCRALFATE 1 GM/10 ML ORAL SUSP PO SCH ×2 (17:00→21:28)
[2020-07-23] MEDS: SUCRALFATE 1 GM/10 ML ORAL SUSP PO SCH ×4 (06:25→22:00)
[2020-07-23 07:05] LABS: Basophils # (auto) 0 10 ^3/uL (0-0.2); Basophils % (auto) 0.3 % (0.0-2.0); Eosinophils # (auto) 0.1 10 ^3/uL (0-0.8); Eosinophils % (auto) 0.8 % (0.0-7.0); Hematocrit 30.2 % (36.0-46.0); Hemoglobin 10.4 g/dL (12.2-16.2); Lymphocytes % (auto) 10.3 % (10.0-50.0); Mean Corpuscular Hemoglobin 30.7 pg (28.0-32.0); Mean Corpuscular Hgb Conc. 34.4 g/dL (32.0-36.0); Mean Corpuscular Volume 89.4 fL (80.0-100.0); Monocytes # (auto) 1.3 10 ^3/uL (0-1.3); Monocytes % (auto) 12.7 % (0.0-12.0); Neutrophils # (auto) 7.5 10 ^3/uL (1.6-8.6); Neutrophils % (auto) 75.9 % (37.0-80.0); Nucleated Red Blood Cells % 0.1 %; Red Blood Cells 3.38 10^6/uL (4.0-5.20); Red Cell Distribution Width 16.9 % (11.8-14.3); White Blood Cell 9.8 10^3/uL (4.4-10.8)
[2020-07-23 07:27] LABS: BUN/Creatinine Ratio 41.7; Calcium 7.8 mg/dL (8.5-10.1); Potassium 3.6 mmol/L (3.5-5.1)
[2020-07-23] MEDS: SODIUM CHLOR 0.9% PF (SALINE LOCK) 10ML VIAL/SYR IV SCH ×2 (10:00→22:08)
[2020-07-23] MEDS: CHOLECALCIFEROL (VITD3) 2,000 UNIT CAP/TAB PO SCH (10:00)
[2020-07-23] MEDS: DexAMETHasone SOD PHOS 4 MG/1ML SDV INJ IV SCH (10:00)
[2020-07-23] MEDS: levoFLOXacin 500MG 100 ML IV SCH (10:00)
[2020-07-23] MEDS: LACTULOSE 20Gm/30ML SOLN PO SCH (10:00)
[2020-07-23] MEDS: ZINC SULFATE 220mg CAP or TAB PO SCH (10:00)
[2020-07-23] MEDS: ASCORBIC ACID 1,000 MG TAB PO SCH (10:00)
[2020-07-23] MEDS: FAMOTIDINE (10MG/ML) 2ML VL IV SCH ×2 (10:00→22:08)
[2020-07-23] MEDS: HALOPERIDOL LACTATE 5 MG/ML INJ VIAL IM PRN (15:14)
[2020-07-23 15:55] LABS: INR 1.06 (0.9-1.15)
[2020-07-23] MEDS: QUEtiapine FUMARATE 25 MG TAB PO SCH (22:00)
[2020-07-24] VITALS: BP 113/67
[2020-07-24] MEDS: SUCRALFATE 1 GM/10 ML ORAL SUSP PO SCH ×4 (06:27→21:39)
[2020-07-24] MEDS: SODIUM CHLOR 0.9% PF (SALINE LOCK) 10ML VIAL/SYR IV SCH ×2 (08:45→21:39)
[2020-07-24] MEDS: FAMOTIDINE (10MG/ML) 2ML VL IV SCH ×2 (08:45→21:39)
[2020-07-24] MEDS: HALOPERIDOL LACTATE 5 MG/ML INJ VIAL IM PRN (08:46)
[2020-07-24] MEDS: DexAMETHasone SOD PHOS 4 MG/1ML SDV INJ IV SCH (08:46)
[2020-07-24] MEDS: LACTULOSE 20Gm/30ML SOLN PO SCH (08:57)
[2020-07-24] MEDS: ZINC SULFATE 220mg CAP or TAB PO SCH (08:57)
[2020-07-24] MEDS: ASCORBIC ACID 1,000 MG TAB PO SCH (08:57)
[2020-07-24] MEDS: CHOLECALCIFEROL (VITD3) 2,000 UNIT CAP/TAB PO SCH (08:58)
[2020-07-24] MEDS: levoFLOXacin 500MG 100 ML IV SCH (12:25)
[2020-07-24] MEDS ORDERED: DexAMETHasone SOD PHOS 4 MG/1ML SDV INJ IV ONE (13:00)
[2020-07-24 15:40] VITALS: BP 122/66
[2020-07-24] MEDS: MORPHINE SULFATE INJECTION 2 MG/ML SYRG IV PRN (16:32)
[2020-07-24] MEDS: QUEtiapine FUMARATE 25 MG TAB PO SCH (21:39)
[2020-07-25] VITALS: BP 142/83
[2020-07-25] MEDS: SUCRALFATE 1 GM/10 ML ORAL SUSP PO SCH ×4 (06:06→22:00)
[2020-07-25 08:32] VITALS: BP 120/65
[2020-07-25] MEDS: FAMOTIDINE (10MG/ML) 2ML VL IV SCH (09:43)
[2020-07-25] MEDS: levoFLOXacin 500MG 100 ML IV SCH (09:43)
[2020-07-25] MEDS: LACTULOSE 20Gm/30ML SOLN PO SCH (09:44)
[2020-07-25] MEDS: CHOLECALCIFEROL (VITD3) 2,000 UNIT CAP/TAB PO SCH (09:44)
[2020-07-25] MEDS: SODIUM CHLOR 0.9% PF (SALINE LOCK) 10ML VIAL/SYR IV SCH ×2 (09:44→22:00)
[2020-07-25] MEDS: ZINC SULFATE 220mg CAP or TAB PO SCH (09:44)
[2020-07-25] MEDS: ASCORBIC ACID 1,000 MG TAB PO SCH (09:44)
[2020-07-25 13:00] VITALS: BP 135/73
[2020-07-25] MEDS ORDERED: traMADol HCL 50 MG TAB PO PRN (14:45)
[2020-07-25 16:59] VITALS: BP 137/88
[2020-07-25] MEDS: QUEtiapine FUMARATE 25 MG TAB PO SCH (22:00)
[2020-07-26 00:06] VITALS: BP 146/71
[2020-07-26 05:00] VITALS: BP 145/85
[2020-07-26] MEDS: SUCRALFATE 1 GM/10 ML ORAL SUSP PO SCH ×4 (06:16→22:00)
[2020-07-26] MEDS: HALOPERIDOL LACTATE 5 MG/ML INJ VIAL IM PRN (08:05)
[2020-07-26] MEDS: SODIUM CHLOR 0.9% PF (SALINE LOCK) 10ML VIAL/SYR IV SCH ×2 (09:44→22:00)
[2020-07-26] MEDS: LACTULOSE 20Gm/30ML SOLN PO SCH (09:44)
[2020-07-26] MEDS: FAMOTIDINE 20 MG TAB PO SCH (09:45)
[2020-07-26] MEDS: levoFLOXacin 500 MG TAB PO SCH (09:45)
[2020-07-26] MEDS: CHOLECALCIFEROL (VITD3) 2,000 UNIT CAP/TAB PO SCH (09:45)
[2020-07-26] MEDS: ASCORBIC ACID 1,000 MG TAB PO SCH (09:45)
[2020-07-26] MEDS: ZINC SULFATE 220mg CAP or TAB PO SCH (09:45)
[2020-07-26 13:00] VITALS: BP 132/77
[2020-07-26 16:51] VITALS: BP 130/81
[2020-07-26 22:00] VITALS: BP 156/80
[2020-07-26] MEDS: QUEtiapine FUMARATE 25 MG TAB PO SCH (22:00)
[2020-07-27 05:00] VITALS: BP 136/85
[2020-07-27] MEDS: SUCRALFATE 1 GM/10 ML ORAL SUSP PO SCH ×4 (06:34→22:00)
[2020-07-27 07:00] LABS: Basophils # (auto) 0 10 ^3/uL (0-0.2); Basophils % (auto) 0.1 % (0.0-2.0); Eosinophils # (auto) 0.2 10 ^3/uL (0-0.8); Eosinophils % (auto) 1.7 % (0.0-7.0); Hematocrit 34.5 % (36.0-46.0); Hemoglobin 11.6 g/dL (12.2-16.2); Lymphocytes # (auto) 0.6 10 ^3/uL (0.4-5.4); Lymphocytes % (auto) 5.2 % (10.0-50.0); Mean Corpuscular Hemoglobin 30.6 pg (28.0-32.0); Mean Corpuscular Hgb Conc. 33.5 g/dL (32.0-36.0); Mean Corpuscular Volume 91.3 fL (80.0-100.0); Monocytes # (auto) 0.5 10 ^3/uL (0-1.3); Monocytes % (auto) 4.9 % (0.0-12.0); Neutrophils # (auto) 9.4 10 ^3/uL (1.6-8.6); Neutrophils % (auto) 88.1 % (37.0-80.0); Nucleated Red Blood Cells % 0.1 %; Red Blood Cells 3.78 10^6/uL (4.0-5.20); White Blood Cell 10.7 10^3/uL (4.4-10.8)
[2020-07-27 07:01] LABS: Albumin 2.9 g/dL (3.4-5.0); Calcium 8.2 mg/dL (8.5-10.1); Potassium 3.2 mmol/L (3.5-5.1)
[2020-07-27 07:04] LABS: Total Protein 5.6 g/dL (6.4-8.2)
[2020-07-27 08:00] VITALS: BP 144/78
[2020-07-27] MEDS: ASCORBIC ACID 1,000 MG TAB PO SCH (10:00)
[2020-07-27] MEDS: QUEtiapine FUMARATE 25 MG TAB PO SCH ×2 (10:00→22:00)
[2020-07-27] MEDS: FAMOTIDINE 20 MG TAB PO SCH (10:00)
[2020-07-27] MEDS: ZINC SULFATE 220mg CAP or TAB PO SCH (10:00)
[2020-07-27] MEDS: LACTULOSE 20Gm/30ML SOLN PO SCH (10:00)
[2020-07-27] MEDS: levoFLOXacin 500 MG TAB PO SCH (10:00)
[2020-07-27] MEDS: SODIUM CHLOR 0.9% PF (SALINE LOCK) 10ML VIAL/SYR IV SCH ×2 (10:00→22:00)
[2020-07-27] MEDS: CHOLECALCIFEROL (VITD3) 2,000 UNIT CAP/TAB PO SCH (10:00)
[2020-07-27] MEDS ORDERED: POTASSIUM CHL 20 Meq TABLET PO ONE (14:30)
[2020-07-27 16:00] VITALS: BP 148/90
[2020-07-27 22:22] VITALS: BP 127/74
[2020-07-28 05:32] VITALS: BP 141/81
[2020-07-28] MEDS: SUCRALFATE 1 GM/10 ML ORAL SUSP PO SCH ×5 (06:31→22:00)
[2020-07-28 08:27] VITALS: BP 138/68
[2020-07-28] MEDS: FAMOTIDINE 20 MG TAB PO SCH (10:00)
[2020-07-28] MEDS: LACTULOSE 20Gm/30ML SOLN PO SCH (10:00)
[2020-07-28] MEDS: ASCORBIC ACID 1,000 MG TAB PO SCH (10:00)
[2020-07-28] MEDS: levoFLOXacin 500 MG TAB PO SCH (10:00)
[2020-07-28] MEDS: QUEtiapine FUMARATE 25 MG TAB PO SCH ×2 (10:00→22:00)
[2020-07-28] MEDS: CHOLECALCIFEROL (VITD3) 2,000 UNIT CAP/TAB PO SCH (10:00)
[2020-07-28] MEDS: SODIUM CHLOR 0.9% PF (SALINE LOCK) 10ML VIAL/SYR IV SCH ×2 (10:00→22:00)
[2020-07-28 13:00] VITALS: BP 125/77
[2020-07-28 16:39] VITALS: BP 135/79
[2020-07-28] MEDS: MORPHINE SULFATE INJECTION 2 MG/ML SYRG IV PRN (17:11)
[2020-07-28 21:45] VITALS: BP 132/74
[2020-07-29 04:53] VITALS: BP 149/79
[2020-07-29] MEDS: SUCRALFATE 1 GM/10 ML ORAL SUSP PO SCH ×4 (06:43→21:21)
[2020-07-29 08:46] VITALS: BP 137/68
[2020-07-29] MEDS: FAMOTIDINE 20 MG TAB PO SCH (10:00)
[2020-07-29] MEDS: levoFLOXacin 500 MG TAB PO SCH (10:00)
[2020-07-29] MEDS: ASCORBIC ACID 1,000 MG TAB PO SCH (10:00)
[2020-07-29] MEDS: QUEtiapine FUMARATE 25 MG TAB PO SCH ×2 (10:00→21:21)
[2020-07-29] MEDS: LACTULOSE 20Gm/30ML SOLN PO SCH (10:00)
[2020-07-29] MEDS: CHOLECALCIFEROL (VITD3) 2,000 UNIT CAP/TAB PO SCH (10:00)
[2020-07-29] MEDS: SODIUM CHLOR 0.9% PF (SALINE LOCK) 10ML VIAL/SYR IV SCH ×3 (10:00→22:00)
[2020-07-29] MEDS ORDERED: IBUPROFEN 400 MG TAB PO PRN (12:15)
[2020-07-29] MEDS ORDERED: CEPHALEXIN 250 MG CAP PO ONE (12:15)
[2020-07-29 13:00] VITALS: BP 132/70
[2020-07-29 16:33] VITALS: BP 129/64
[2020-07-29] MEDS: TROLAMINE SALICYLATE 10% TOP CREAM TOP PRN (17:33)
[2020-07-29] MEDS: CEPHALEXIN 250 MG CAP PO SCH (21:11)
[2020-07-30] VITALS: BP 147/86
[2020-07-30 06:00] VITALS: BP 137/70
[2020-07-30] MEDS: CEPHALEXIN 250 MG CAP PO SCH ×3 (06:00→21:15)
[2020-07-30 06:20] LABS: Basophils # (auto) 0 10 ^3/uL (0-0.2); Basophils % (auto) 0.3 % (0.0-2.0); Eosinophils # (auto) 0.1 10 ^3/uL (0-0.8); Eosinophils % (auto) 1.5 % (0.0-7.0); Hematocrit 33.4 % (36.0-46.0); Hemoglobin 11.5 g/dL (12.2-16.2); Lymphocytes # (auto) 0.8 10 ^3/uL (0.4-5.4); Lymphocytes % (auto) 9.7 % (10.0-50.0); Mean Corpuscular Hemoglobin 31.2 pg (28.0-32.0); Mean Corpuscular Hgb Conc. 34.3 g/dL (32.0-36.0); Neutrophils # (auto) 6.4 10 ^3/uL (1.6-8.6); Neutrophils % (auto) 76.5 % (37.0-80.0); Red Blood Cells 3.67 10^6/uL (4.0-5.20); White Blood Cell 8.3 10^3/uL (4.4-10.8)
[2020-07-30 06:27] LABS: Red Cell Distribution Width 20.4 % (11.8-14.3)
[2020-07-30 06:37] LABS: Potassium 3.3 mmol/L (3.5-5.1)
[2020-07-30] MEDS: SUCRALFATE 1 GM/10 ML ORAL SUSP PO SCH ×4 (06:37→21:28)
[2020-07-30 06:55] LABS: BUN/Creatinine Ratio 25.9; Calcium 7.7 mg/dL (8.5-10.1)
[2020-07-30] MEDS: QUEtiapine FUMARATE 25 MG TAB PO SCH ×2 (09:25→21:28)
[2020-07-30] MEDS: FAMOTIDINE 20 MG TAB PO SCH (09:25)
[2020-07-30] MEDS: CHOLECALCIFEROL (VITD3) 2,000 UNIT CAP/TAB PO SCH (09:25)
[2020-07-30] MEDS: LACTULOSE 20Gm/30ML SOLN PO SCH (09:25)
[2020-07-30 09:38] VITALS: BP 143/82
[2020-07-30 12:37] VITALS: BP 133/88
[2020-07-30] MEDS: ACETAMINOPHEN 500 MG TAB PO PRN (14:11)
[2020-07-30 16:46] VITALS: BP 164/81
[2020-07-30] MEDS: SODIUM CHLOR 0.9% PF (SALINE LOCK) 10ML VIAL/SYR IV SCH (21:28)
[2020-07-30] MEDS: TROLAMINE SALICYLATE 10% TOP CREAM TOP PRN (21:29)
[2020-07-30 22:00] VITALS: BP 159/92
[2020-07-31 05:00] VITALS: BP 153/59
[2020-07-31] MEDS: CEPHALEXIN 250 MG CAP PO SCH ×3 (05:20→21:08)
[2020-07-31] MEDS: SUCRALFATE 1 GM/10 ML ORAL SUSP PO SCH ×5 (05:24→21:07)
[2020-07-31 08:31] VITALS: BP 135/82
[2020-07-31] MEDS: SODIUM CHLOR 0.9% PF (SALINE LOCK) 10ML VIAL/SYR IV SCH ×2 (09:49→21:07)
[2020-07-31] MEDS: LACTULOSE 20Gm/30ML SOLN PO SCH (09:49)
[2020-07-31] MEDS: FAMOTIDINE 20 MG TAB PO SCH (09:49)
[2020-07-31] MEDS: QUEtiapine FUMARATE 25 MG TAB PO SCH ×2 (09:52→21:07)
[2020-07-31] MEDS: CHOLECALCIFEROL (VITD3) 2,000 UNIT CAP/TAB PO SCH (09:52)
[2020-07-31] MEDS: ACETAMINOPHEN 500 MG TAB PO PRN (09:53)
[2020-07-31 12:30] VITALS: BP 140/87
[2020-07-31 17:00] VITALS: BP 154/86
[2020-07-31 22:00] VITALS: BP 136/72
[2020-08-01 05:00] VITALS: BP 126/55
[2020-08-01] MEDS: CEPHALEXIN 250 MG CAP PO SCH ×3 (05:32→20:58)
[2020-08-01] MEDS: ACETAMINOPHEN 500 MG TAB PO PRN ×2 (05:36→20:58)
[2020-08-01] MEDS: SUCRALFATE 1 GM/10 ML ORAL SUSP PO SCH ×4 (06:18→21:40)
[2020-08-01] MEDS: TROLAMINE SALICYLATE 10% TOP CREAM TOP PRN (06:30)
[2020-08-01 08:27] VITALS: BP 147/62
[2020-08-01] MEDS: LACTULOSE 20Gm/30ML SOLN PO SCH (10:00)
[2020-08-01] MEDS: QUEtiapine FUMARATE 25 MG TAB PO SCH ×2 (10:00→21:40)
[2020-08-01] MEDS: CHOLECALCIFEROL (VITD3) 2,000 UNIT CAP/TAB PO SCH (10:00)
[2020-08-01] MEDS: SODIUM CHLOR 0.9% PF (SALINE LOCK) 10ML VIAL/SYR IV SCH ×2 (10:00→21:41)
[2020-08-01] MEDS: FAMOTIDINE 20 MG TAB PO SCH (10:00)
[2020-08-01 12:39] VITALS: BP 141/81
[2020-08-01 16:48] VITALS: BP 160/90
[2020-08-01 22:00] VITALS: BP 138/88
[2020-08-02 05:00] VITALS: BP 125/77
[2020-08-02] MEDS: CEPHALEXIN 250 MG CAP PO SCH ×2 (05:50→13:08)
[2020-08-02] MEDS: SUCRALFATE 1 GM/10 ML ORAL SUSP PO SCH ×3 (06:20→17:00)
[2020-08-02 08:31] VITALS: BP 145/83
[2020-08-02] MEDS: CHOLECALCIFEROL (VITD3) 2,000 UNIT CAP/TAB PO SCH (09:07)
[2020-08-02] MEDS: LACTULOSE 20Gm/30ML SOLN PO SCH (09:07)
[2020-08-02] MEDS: FAMOTIDINE 20 MG TAB PO SCH (09:07)
[2020-08-02] MEDS: QUEtiapine FUMARATE 25 MG TAB PO SCH (09:07)
[2020-08-02 12:57] VITALS: BP 138/82
[2020-08-02 14:43] VITALS: BP 138/82
[2020-08-02 17:19] VITALS: BP 133/74
[2020-08-02] MEDS: SODIUM CHLOR 0.9% PF (SALINE LOCK) 10ML VIAL/SYR IV SCH (18:32)
== END 2020-08-02 20:22 | DRG 870 ==
LOC: EDBD 11:15 → ER 11:15 → TELE 11:16 → TELE-EAST 17:05 → ICU WEST 07-10 13:05 → TELE-WESTW 07-20 17:09
PROVIDERS: ADMIT Nurse Practitioner Acute Care; ATTEND Internal Medicine
PROC: XW033H5 Introduction of Tocilizumab into Peripheral Vein, Percutaneous Approach, New Technology Group 5 (ICD-10-PCS; 2020-07-08)
PROC: XW13325 Transfusion of Convalescent Plasma (Nonautologous) into Peripheral Vein, Percutaneous Approach, New Technology Group 5 (ICD-10-PCS; principal; 2020-07-09)
PROC: XW033E5 Introduction of Remdesivir Anti-infective into Peripheral Vein, Percutaneous Approach, New Technology Group 5 (ICD-10-PCS; 2020-07-09)
PROC: 5A1955Z Respiratory Ventilation, Greater than 96 Consecutive Hours (ICD-10-PCS; 2020-07-10)
PROC: 0BH17EZ Insertion of Endotracheal Airway into Trachea, Via Natural or Artificial Opening (ICD-10-PCS; 2020-07-10)
PROC: 02HV33Z Insertion of Infusion Device into Superior Vena Cava, Percutaneous Approach (ICD-10-PCS; 2020-07-10)
PROC: 5A09357 Assistance with Respiratory Ventilation, Less than 24 Consecutive Hours, Continuous Positive Airway Pressure (ICD-10-PCS; 2020-07-10)
PROC: 02HV33Z Insertion of Infusion Device into Superior Vena Cava, Percutaneous Approach (ICD-10-PCS; 2020-07-18)
PROC: 05HA33Z Insertion of Infusion Device into Left Brachial Vein, Percutaneous Approach (ICD-10-PCS; 2020-07-23)
PROC: B54NZZA Ultrasonography of Left Upper Extremity Veins, Guidance (ICD-10-PCS; 2020-07-23)
DX: A41.89 Other specified sepsis (principal); U07.1 COVID-19; J12.82 Pneumonia due to coronavirus disease 2019; J96.01 Acute respiratory failure with hypoxia; G92 Toxic encephalopathy; I21.A1 Myocardial infarction type 2; D68.59 Other primary thrombophilia; E44.0 Moderate protein-calorie malnutrition; E87.0 Hyperosmolality and hypernatremia; E87.1 Hypo-osmolality and hyponatremia; G93.1 Anoxic brain damage, not elsewhere classified; K92.2 Gastrointestinal hemorrhage, unspecified; L03.119 Cellulitis of unspecified part of limb; R57.9 Shock, unspecified; D89.839 Cytokine release syndrome, grade unspecified; I10 Essential (primary) hypertension; D69.6 Thrombocytopenia, unspecified; D64.9 Anemia, unspecified; I67.2 Cerebral atherosclerosis; Z79.899 Other long term (current) drug therapy; Z90.49 Acquired absence of other specified parts of digestive tract; Z79.891 Long term (current) use of opiate analgesic; Z79.01 Long term (current) use of anticoagulants
CPT/HCPCS: 36415; 36569; 36600; 70450; 71045; 80048; 80053; 80061; 81001; 82270; 82306; 82550; 82565; 82728; 82805; 83036; 83605; 83615; 83735; 83880; 84443; 84484; 85007; 85025; 85027; 85379; 85610; 85730; 86141; 86850; 86900; 86901; 87040; 87070; 87081; 87205; 87426; 93005; 93306; 93970; 94002; 94003; 94640; 96365; 96372; 96375; 97110; 97116; 97530; G0378; J1100; J1956; J2001; J2250; J2704; J3490; J7060

== ENCOUNTER 2020-10-12 11:16 | Emergency (ER) | payer MEDICARE, SELFPAY ==
[~2020-10-12] VITALS: Ht 162.6 cm; Wt 56.7 kg
[2020-10-12 11:45] VITALS: BP 122/59
== END 2020-10-12 12:09 | disposition home or self-care (01) ==
LOC: ER 11:16
DX: F20.9 Schizophrenia, unspecified (principal); Z88.6 Allergy status to analgesic agent; Z76.0 Encounter for issue of repeat prescription

== ENCOUNTER 2023-06-10 10:10 | Emergency (ER) | payer OTHER, MEDICAID ==
[~2023-06-10] VITALS: Ht 162.6 cm; Wt 66.7 kg
[2023-06-10 14:14] VITALS: BP 153/80; PULSE 108; RESP 18; TEMP 98.3; O2SAT 95
[2023-06-10] MEDS ORDERED: ACET500T58 PO ×3 (14:14→14:24)
[2023-06-10] MEDS ORDERED: BENZ100C97 PO ×3 (14:14→14:24)
[2023-06-10] MEDS ORDERED: LIDOCAINE 1% HCL (LOCAL ANESTH.) INJ 20ML MDV ONE (14:14)
[2023-06-10] MEDS ORDERED: AUG875T PO ×3 (14:14→14:24)
[2023-06-10] MEDS ORDERED: cefTRIAXone SOD 500 MG VL IM ONE (14:15)
== END 2023-06-10 14:33 | disposition home or self-care (01) ==
LOC: ER 10:10
DX: R05.9 Cough, unspecified (principal); F20.9 Schizophrenia, unspecified
CPT/HCPCS: 71046; 96372; 99283; J0696; J2001